=== PATIENT | male | born 1985 | race Caucasian/White ===

== ENCOUNTER 2018-04-11 20:11 | Emergency (ER) | payer OTHER ==
[2018-04-11 20:28] VITALS: BP 161/108
[2018-04-11] MEDS ORDERED: IBUPROFEN 800 MG TAB PO ONE ×2 (20:49→20:51)
[2018-04-11] MEDS ORDERED: TDAP ADULT 0.5 ML INJ (BOOSTRIX) IM ONE (21:25)
--- NOTE | 2018-04-11 21:25 | EDPHY ---
H & P Stated Complaint: says was changing a tire, genoveva slipped and wheel well fell on hand on tire Time Seen by Provider: 04/11/18 20:53 HPI/ROS: CHIEF COMPLAINT: Left hand crush injury HISTORY OF PRESENT ILLNESS: 33-year-old left hand dominant male was changing a tire when his car Genoveva slipped temporarily crushing his hand between the tire in the car frame. He was able to remove his hand quickly. Complaining of pain soft tissue swelling to the dorsum of the left hand overlying the 2nd 3rd 4th metacarpal. No paresthesia, although he does note pain with movement distally. Positive abrasion on dorsal aspect. Tetanus is out-of-date PHYSICAL EXAM (Prior to examination, patient consented to physical exam, hands were washed and my usual and customary physical exam procedures followed) 1) GENERAL: Well-developed, well-nourished, alert and oriented. Appears to be in no acute distress. 2) HEAD: Normocephalic 3) HEENT: Pupils equal, round, reactive to light bilaterally. 4) LUNGS: Breathing comfortably. 5) MUSCULOSKELETAL: Soft tissue swelling and ecchymosis to the dorsum of the left hand with soft compartments. Abrasion to the dorsum of the left hand. Normal coloration. No gross extensor deficits, although this is challenging to completely assess given his soft tissue swelling and pain currently. 6) SKIN: Abrasion 7) VASCULAR: pulses and cap refill present are brisk 8) NEUROLOGIC: Radial, ulnar, median nerve function intact with no deficits appreciated on exam DIFFERENTIAL DIAGNOSIS: in no particular order including but not limited to fracture, sprain, compartment syndrome Procedure: Splint A Velcro volar splint was applied by ER tire and lube technician. After application of the splint I returned and re-examined the patient. The splint was adequately immobilizing the joint and distal to the splint the patient's circulation and sensation were intact. Patient shows no signs of compartment syndrome. Was given orthopedic precautions. - Personal History Current Tetanus Diphtheria and Acellular Pertussis (TDAP): Unsure - Medical/Surgical History Hx Asthma: No Hx Chronic Respiratory Disease: No Hx Diabetes: No Hx Cardiac Disease: No Hx Renal Disease: No Hx Cirrhosis: No Hx Alcoholism: No Hx HIV/AIDS: No Hx Splenectomy or Spleen Trauma: No Other PMH: rosacea - Social History Smoking Status: Current some day smoker Constitutional: Initial Vital Signs Temperature (C) 36.5 C 04/11/18 20:23 Heart Rate 81 04/11/18 20:23 Respiratory Rate 16 04/11/18 20:23 Blood Pressure 161/108 H 04/11/18 20:23 O2 Sat (%) 96 04/11/18 20:23 O2 Delivery Mode Room Air Allergies/Adverse Reactions: No Known Allergies Allergy (Unverified 04/11/18 20:28) Home Medications: Medication Instructions Recorded NK [No Known Home Meds] 04/11/18 Medical Decision Making - Diagnostics Imaging Results: Imaging Impressions Hand X-Ray 04/11/18 20:50 Impression: Negative for fracture. Images reviewed myself ED Course/Re-evaluation: Patient has been informed the limitations of x-ray, informed that non osseous injury is not ruled out. He has no gross extensor deficits on examination although his exam is challenging given the degree of soft tissue swelling and pain currently. He has been informed that extensor injury is not ruled out. He has been placed in a splint and I recommended follow up with on-call hand surgery. His tetanus has been updated. Recommend elevation and usual customary orthopedic precautions instructions provided. He feels comfortable being discharged home. I saw this patient independently based on established practice protocols. Care of patient under supervision of secondary supervising physician Dr Newman. - Data Points Medications Given: Discontinued Medications Ibuprofen (Motrin) 800 mg PO EDNOW ONE Stop: 04/11/18 20:52 Last Admin: 04/11/18 20:52 Dose: 800 mg Departure - Departure Disposition: Home, Routine, Self-Care Clinical Impression: Crushing injury of left hand Qualifiers: Encounter type: initial encounter Qualified Code(s): S67.22XA - Crushing injury of left hand, initial encounter Abrasion of left hand Qualifiers: Encounter type: initial encounter Qualified Code(s): S60.512A - Abrasion of left hand, initial encounter Condition: Good Instructions: Abrasion (ED), Crush Injury (ED) Additional Instructions: Return to the ER immediately if you experience discoloration, have worsening pain, numbness, tingling, or any other symptoms that concern you. If you received x-rays in the emergency department today, be advised, that ligamentous , tendon, muscular, and other non-bony injury cannot be fully ruled out. Try to keep your affected extremity elevated above the level of your chest, and keep cold packs on the affected area, for the next 48 hours. Adult Pain & Fever Control: We recommend Acetaminophen (Tylenol) and Ibuprofen (Motrin,Advil) for pain and fever control. When fever is high or pain severe, both drugs can be used at the same time, but at different intervals. Please note the time differences. Your dose is: Acetaminophen 650mg every 4 to 6 hours Ibuprofen 600mg every 6 hours with food OR Note: do not take Acetaminophen with Hydrocodone (Vicodin, Lortab) or Oycodone (Percocet). These medications also contain Acetaminophen. No more than 3000mg of Acetaminophen should be taken in 24 hours (for an adult). Referrals: Nadeem Peace MD [Medical Doctor] - 2-3 days, call for appt. (Dr. Nadeem Peace is a hand surgeon)
== END 2018-04-11 21:38 | disposition home or self-care (01) ==
DX: S67.22XA Crushing injury of left hand, initial encounter (principal); S60.512A Abrasion of left hand, initial encounter; F17.200 Nicotine dependence, unspecified, uncomplicated; Z23 Encounter for immunization; W23.1XXA Caught, crushed, jammed, or pinched between stationary objects, initial encounter; Y99.8 Other external cause status; Y93.89 Activity, other specified
CPT/HCPCS: L3908